=== PATIENT | male | born 1985 | race Caucasian/White ===

== ENCOUNTER 2023-05-12 16:08 | Emergency (ER) | payer BC, SELFPAY ==
--- NOTE | ~2023-05-12 | XR_ITS ---
EXAMINATION: XR CHEST CLINICAL INFORMATION: Chest pain COMPARISON: None available. TECHNIQUE: Frontal view of the chest was obtained. FINDINGS: No significant abnormality is noted involving the heart, lungs, mediastinum, bony thorax or soft tissues. XR/XR chest 1V IMPRESSION: Unremarkable examination.
--- NOTE | ~2023-05-12 | US_ITS ---
EXAMINATION: US VENOUS ULTRASOUND WITH DOPPLER LOWER EXTREMITY, RIGHT CLINICAL INFORMATION: Right leg calf pain COMPARISON: None available. TECHNIQUE: Ultrasound of the deep veins is performed from the hip to the calf with compression sonography and color and pulse Doppler assessment. Spectral analysis with color-flow imaging is performed. FINDINGS: There is normal venous compression and respiratory variation and augmented flow. The visualized common femoral vein, superficial femoral vein, profunda femoral vein, popliteal vein, and the trifurcation region shows no evidence of deep venous thrombosis. There is no significant popliteal fossa cyst. If the patient's symptoms persist, followup ultrasound in 5 days 7 days might be of value to exclude proximal propagation from a non-visualized calf vein. US/US venous duplex LE RT IMPRESSION: No DVT demonstrated in the right lower extremity.
--- NOTE | 2023-05-12 16:11 | ECG_ITS ---
Test Reason : chest pain Blood Pressure : / mmHG Vent. Rate : 088 BPM Atrial Rate : 088 BPM P-R Int : 184 ms QRS Dur : 086 ms QT Int : 346 ms P-R-T Axes : 018 009 005 degrees QTc Int : 418 ms Normal sinus rhythm Nonspecific T wave abnormality Abnormal ECG No previous ECGs available Referred By: Generic ED Physician Electronically Signed By:LUCIAN GUTHRIE
[2023-05-12 16:24] VITALS: BP 145/93; PULSE 87; RESP 18; TEMP 36.9; O2SAT 96; BMI 38.9
--- NOTE | 2023-05-12 16:29 | ED_ITS ---
HPI - Chest Pain General Chief Complaint: Chest Pain Stated Complaint: chest pain, palpitations History of Present Illness HPI narrative: Left without complete of treatment by ED provider. Related Data Allergies Allergy/AdvReac Type Severity Reaction Status Date / Time pencillin Allergy Mild Rash Uncoded 05/12/23 16:27 [facility] Social History Social History Advance Directives: No Advance Directives Information Provided: No Physical Exam 2 Vital Signs: Vital Signs: Last Vital Signs Temp 98.5 F 05/12/23 16:24 Pulse 87 05/12/23 16:24 Resp 18 05/12/23 16:24 BP 145/93 H 05/12/23 16:24 Pulse Ox 96 05/12/23 16:24 O2 Del Method Room Air 05/12/23 16:24 BMI result Body Mass Index 38.9 Course Course Course Narrative: RME: 38-year-old male presents to ED for chest pain and palpitation started couple hours ago. Patient states also mild right leg calf tightness for couple of days. Physical exam negative for any swelling of lower extremities or pitting edema. EKG chest x-ray lab ordered. Medical Decision Making Lab Data 05/12/23 17:20 05/12/23 17:20 Labs: Lab Results 05/12/23 Range/Units 17:20 WBC 8.7 (4.8-10.8) X10*3/uL RBC 5.31 (4.60-5.80) X10*6/uL Hgb 15.4 (14.0-18.0) g/dl Hct 45.5 (42.0-52.0) % MCV 85.7 (80.0-98.0) fL MCH 29.0 (27.0-33.0) pg MCHC 33.8 (31.0-36.0) g/dl RDW 12.6 (11.0-16.0) % Plt Count 282 (160-400) X10*3/uL MPV 10.6 (9.4-12.4) fL Immature Gran % (Auto) 0.1 (0.0-0.4) % Neut % (Auto) 64.0 (45-73) % Lymph % (Auto) 23.4 (20-40) % [place] % (Auto) 11.3 H (2-11) % Eos % (Auto) 0.9 (0-4) % Baso % (Auto) 0.3 (0-2) % Lymph # (Auto) 2.0 (1.2-4.9) X10*3/uL [place] # (Auto) 1.0 (0.1-1.2) X10*3/uL Eos # (Auto) 0.1 (0.0-0.4) X10*3/uL Baso # (Auto) 0.0 (0.0-0.2) X10*3/uL Abs Immat Gran (auto) 0.01 (0.00-0.03) X10*3/uL Absolute Neuts (auto) 5.6 (2.0-8.3) x10*3/uL Absolute Nucleated RBC 0.000 (0.0-0.012) X10*3/uL Nucleated RBC % (auto) 0.0 (0.0-0.2) /100WBC PT 12.3 (11.1-13.3) SEC INR 1.0 (0.9-1.1) APTT 34.8 (26.0-36.8) SEC Sodium 141 (135-145) mmol/L Potassium 3.9 (3.3-5.1) mmol/L Chloride 107 (96-108) mmol/L Carbon Dioxide 24 (22-29) mmol/L Anion Gap 14 (12-20) BUN 13 (9-16) mg/dL Creatinine 0.99 (0.5-1.4) mg/dL Estim Creat Clear Calc 131.7 Estimated GFR > 60 Random Glucose 93 (60-115) mg/dL Calcium 9.0 (8.4-10.2) mg/dL Total Bilirubin 0.4 (0.0-1.0) mg/dL Direct Bilirubin 0.2 (0.0-0.5) mg/dL AST 21 (5-37) U/L ALT 33 (0-40) U/L Alkaline Phosphatase 62 (39-117) U/L Troponin I High Sens < 2.7 (<3.5-35.0) ng/L B-Natriuretic Peptide < 10 (<100) pg/mL Total Protein 7.3 (6.5-8.0) g/dL Albumin 4.3 (3.5-5.0) g/dL Lipase 33 (8-78) U/L Discharge Plan Discharge Clinical Impression: Chest pain Patient Disposition: Left W/O Completing Treatment Discharge Date/Time: 05/12/23 23:00
[2023-05-12 17:25] LABS: MANUAL DIFF FLAG NO
[2023-05-12 17:26] LABS: Basophils Percent Auto 0.3 % (0-2); Eosinophils Absolute Auto 0.1 X10*3/uL (0.0-0.4); Eosinophils Percent Auto 0.9 % (0-4); Hematocrit 45.5 % (42.0-52.0); Hemoglobin 15.4 g/dl (14.0-18.0); Imm Gran Abs Auto 0.01 X10*3/uL (0.00-0.03); Imm Gran Pct Auto 0.1 % (0.0-0.4); Lymphocytes Percent Auto 23.4 % (20-40); Mean Corpuscular HGB Conc 33.8 g/dl (31.0-36.0); Mean Corpuscular Volume 85.7 fL (80.0-98.0); Mean Platelet Volume 10.6 fL (9.4-12.4); Monocytes Percent Auto 11.3 % (2-11); Neutrophils Absolute Auto 5.6 x10*3/uL (2.0-8.3); Platelet Count 282 X10*3/uL (160-400); Red Blood Count 5.31 X10*6/uL (4.60-5.80); Red Cell Distribution Width 12.6 % (11.0-16.0); White Blood Count 8.7 X10*3/uL (4.8-10.8)
[2023-05-12 17:32] LABS: Prothrombin Time 12.3 SEC (11.1-13.3)
[2023-05-12 17:34] LABS: Partial Thromboplastin Time 34.8 SEC (26.0-36.8)
[2023-05-12 17:41] LABS: Alanine Aminotransferase 33 U/L (0-40); Albumin Level 4.3 g/dL (3.5-5.0); Alkaline Phosphatase 62 U/L (39-117); Anion Gap 14 (12-20); Aspartate Amino Transferase 21 U/L (5-37); Bilirubin Direct 0.2 mg/dL (0.0-0.5); Bilirubin Total 0.4 mg/dL (0.0-1.0); Blood Urea Nitrogen 13 mg/dL (9-16); Carbon Dioxide 24 mmol/L (22-29); Chloride 107 mmol/L (96-108); Creatinine Clr Calc Pharmacy 131.7; Estimated Glomerular Filt Rate > 60; Glucose Random 93 mg/dL (60-115); Lipase 33 U/L (8-78); Potassium 3.9 mmol/L (3.3-5.1); Sodium 141 mmol/L (135-145); Total Protein 7.3 g/dL (6.5-8.0)
[2023-05-12 17:46] LABS: B Type Natriuretic Peptide < 10 pg/mL (<100)
[2023-05-12 17:47] LABS: Troponin-I High Sensitivity < 2.7 ng/L (<3.5-35.0)
== END 2023-05-12 23:00 | disposition left against medical advice (07) ==
PROVIDERS: Physician Assistant; Emergency Provider Emergency Medicine
DX: R07.89 Other chest pain (principal); R00.2 Palpitations; R94.31 Abnormal electrocardiogram [ECG] [EKG]; R60.0 Localized edema; R06.02 Shortness of breath; Z79.899 Other long term (current) drug therapy
CPT/HCPCS: 36415; 71045; 80048; 80076; 83690; 83880; 84484; 85025; 85610; 85730; 93005; 93971; 99283; 99284

== ENCOUNTER → 2023-05-12 16:11 | Outpatient (BNV) | payer BC, SELFPAY | PROVIDERS: Emergency Provider Emergency Medicine; Visit Provider Internal Medicine | DX: R07.9 Chest pain, unspecified (principal) | CPT/HCPCS: 93010 ==

== ENCOUNTER 2024-04-13 08:00 | Outpatient (AMB) | payer BC, SELFPAY ==
--- OUTSIDE RECORDS SUMMARY | 2024-04-13 08:02 | XMS_ITS | Continuity of Care Document ---
Author Name [facility] Organization [facility] Care Team Providers Care Treating Engineer Name Role Phone [facility] Unavailable Unavailable Problems Combined list of problems from Department of Defense and Veterans Affairs facilities. It does not include entries that were removed or entered in error. Problem Status Onset Date Problem Type Date of Resolution Comments Source visit for: services physical separation Inactive Condition ELS completed f or patellofemoral syndrome. Pt is not requesting an [employer] waiver. To f/u with civilian provider. F/u here prn pending separation. [facility] Other Physical Therapy Active Condition [facility] patellofemoral syndrome Inactive Condition [facility] Patient Counseling: Medical Management Inactive Condition Care plan established and d/w pt. Placed in [address] secondary to knee pain. To start PT tomorrow AM and f/u in 2 weeks. F/u sooner prn for any concerns. Pt is not motivated to remain in the [employer]. [facility] visit for: follow-up exam Active Condition DoD viral syndrome Inactive Condition waiver given D oD joint pain, localized in the knee Active Condition PT Dx - PFPS B, Pt. will benefit from ther ex to address pain and dysfunction. Pt very unmotivated to RTT. Now cleared for ELS. Plan: Discharge from PT, pending separation, advised to continue exercises as learned in clinic. [facility] Allergies, Adverse Reactions, Alerts Combined list of allergies from Department of Defense and Veterans Affairs facilities. It does not include entries that were removed or entered in error. Substance Category Reaction Severity Reaction type Status Date Reported Comments Source AMOXICILLIN (AMOXICILLIN TRIHYDRATE) Drug allergy (disorder) Rash active [address] [place] [address] PENICILLINS Drug allergy (disorder) Unknown active [address] [place] [address] Encounters Combined list of: 1) Encounters from Department of Veterans Affairs facilities going back up to thelast 18 months. 2) Encounters from the Department of [facility] facilities going back up to 280 months. Location Location Details Encounter Type Encounter Number Reason For Visit Attending Provider ADM Date DC Date Status Disposition Source [place] [address]([facility]) OUTPATIENT [id number] ERENDIRA BERRY Madalyn 06/04 Released with Work/Duty Limitations [facility] [place] [address]([facility] [place] [facility] [place] [address]([facility]) OUTPATIENT [id number] ERENDIRA BERRY Madalyn 06/08 Released with Work/Duty Limitations [facility] [place] [address] [place] [address]([facility]) OUTPATIENT [id number] PENNIE SLAUGHTER 06/09 Released with Work/Duty Limitations [place] [address] [place] [address]([facility]) OUTPATIENT [id number] ERENDIRA BERRY Madalyn 06/12 Released with Work/Duty Limitations [facility] [place] [address]([facility] [place], [facility] [place] [address]([facility]) OUTPATIENT [id number] ROSARIO RITTER 06/15 Released with Work/Duty Limitations [place] [address]([facility] [place] [place] [address](Phy sical Therapy, [facility]) OUTPATIENT [id number] AMARILIS SIDDIQI 06/16 Released w/o Limitations [facility] [place] [address](P hysical Therapy , [facility]) [facility] [place] [address](Phy sical Therapy, [facility]) OUTPATIENT [id number] BMT PT ZANA HOPPER 06/17 Released w/o Limitations [facility] [place] [address](P hysical Therapy , [facility]) [facility] [place] [address](Phy sical Therapy, [facility]) OUTPATIENT [id number] BMT PT RHEA FAUSTIN 06/18 Released w/o Limitations [facility] [place] [address](P hysical Therapy , [facility]) [facility] [place] [address](Tra [facility]) OUTPATIENT [id number] FU X RAY ROSARIO SANTIZO 06/19 Released with Work/Duty Limitations [facility] [place] [address](T [facility], [facility] d) [facility] [place] [address](Phy sical Therapy, [facility]) OUTPATIENT [id number] BMT PT ZANA HOPPER 06/19 Released w/o Limitations [facility] [place] [address](P hysical Therapy , [facility]) [facility] [place] [address](Phy sical Therapy, [facility]) OUTPATIENT [id number] BMT PT ZANA HOPPER 06/22 Released w/o Limitations [facility] [place] [address](P hysical Therapy , [facility]) [facility] [place] [address](Phy sical Therapy, [facility]) OUTPATIENT [id number] follow- up ENA MAXWELL 06/23 Released w/o Limitations [facility] [place] [address](P hysical Therapy , [facility]) Procedures Combined list of: 1) Procedures from Department of Veterans Affairs facilities going back up to thelast 18 months, not all VA non-surgical procedures are included; 2) All procedures from the Department of Defense facilities. Procedure Procedure Type Code Date Perfomer Comments Sour e PHYSICAL THERAPY RE-EVALUATION 06/24/2007 [facility] APPLICATION OF A MODALITY TO 1 OR MORE AREAS; HOT OR COLD PACKS 06/23/2007 [facility] THERAPEUTIC PROCEDURE, 1 OR MORE AREAS, EACH 15 MINUTES; THERAPEUTIC EXERCISES TO DEVELOP STRENGTH AND ENDURANCE, RANGE OF MOTION AND FLEXIBILITY 06/20/2007 [facility] APPLICATION OF A MODALITY TO 1 OR MORE AREAS; HOT OR COLD PACKS 06/19/2007 [facility] APPLICATION OF A MODALITY TO 1 OR MORE AREAS; HOT OR COLD PACKS 06/18/2007 [facility] PHYSICAL THERAPY EVALUATION 06/17/2007 [facility] PHYS/OTH QUALIFIED HEALTH OUTSOLE LEVELER QUALIFIED,EDUCATION ,TRAIN,LICENSURE/RE GULATION (WHEN APPLICABLE) EDUC SER RENDERED TO PATS IN A GRP SETTING (EG,,OBESIT Y,OR DIABETIC INSTRUCT) 06/16/2007 [facility] AZITHROMYCIN DIHYDRATE, ORAL, CAPSULES/POWDER, 1 GRAM 05/28/2007 [facility] Physical Therapy Service Re-Evaluation Physical Therapy Service Re-Evaluation [id number] 06/24/2007 ENA MAXWELL [facility] Physical Therapy: ___ Se ion Segments, 15 Minutes Each Physical Therapy: ___ Session Segments, 15 Minutes Each [id number] 06/23/2007 ZANA HOPPER [facility] Modalities Cryotherapy Cold Packs Modalities Cryotherapy Cold Packs [id number] 06/23/2007 ZANA HOPPER Physical Therapy: ___ Se ion Segments, 15 Minutes Each Physical Therapy: ___ Session Segments, 15 Minutes Each [id number] 06/20/2007 ZANA HOPPER Modalities Cryotherapy Cold Packs Modalities Cryotherapy Cold Packs [id number] 06/20/2007 ZANA HOPPER Modalities Cryotherapy Cold Packs Modalities Cryotherapy Cold Packs [id number] 06/18/2007 ZANA HOPPER Physical Therapy: ___ Se ion Segments, 15 Minutes Each Physical Therapy: ___ Session Segments, 15 Minutes Each [id number] 06/18/2007 ZANA HOPPER [facility] Physical Therapy Service Evaluation Physical Therapy Service Evaluation [id number] 06/17/2007 AMARIILS SIDDIQI [facility] Physician Supervised Group Educational Services 06/16/2007 ROSARIO SANTIZO [facility] Social History Combined list of available smoking, tobacco, and other social history from Department of Defense and Veterans Affairs facilities. Social History Type Response Date Comment Sourc e This section is an empty social history section. [facility]D
--- NOTE | 2024-04-13 09:27 | A.OFFVIS_ITS ---
VS Expanded 04/13/24 09:36 Height 5 ft 10 in Weight 279 lb BMI 40.0 Body Fat % 36.1 Body Fat Mass 100.8 Fat Free Mass 178.4 Visceral Fat Rating 19 Body Water % 44.5 Body Water Mass 124.2 Basal Metabolic Rate/Score 2,400 Intake Visit Reasons: TV [employer]UM[employer] SWL BMI 40.0 Allergies pencillin Allergy (Mild, Uncoded 04/13/24 09:28) Rash Medication List - Last Reconciled 04/13/24 by Ashu Sheridan MD No Known Home Meds HPI HPI [employer]UM[employer] SWL BMI 40.0: Details: Start time: 9.16am, End time: 10.01am ?I spent 40 minutes speaking with the patient on the phone plus an additional 5 minutes reviewing and updating records for a total of 45 minutes HPI Comments Details: Previous weight loss efforts: self diets Wakes up: 6.30am, Sleeps: 10.30pm Breakfast: 7-8am (apple, granola bar, muffin) Lunch: 12pm (sandwich, burger) Dinner: 6-7pm (chicken, potatoes, burgers) Snacks: 10am (chips, cookies), 2-3pm (chips, cookies), 8-9pm (ice cream, cookie s) Exercise: has home stationary bike Fluids: Coffee/Tea: none, soda: rarely 1/wk, juice:none, ETOH: none PFSH Medical History (Updated 04/13/24 @ 09:52 by Ashu Sheridan MD) Anxiety Patella-femoral syndrome Surgical History (Updated 04/10/24 @ 10:46 by Ivonne Guo CMA) Hx of elbow surgery Hx of wisdom tooth extraction Family History (Updated 04/10/24 @ 10:47 by Ivonne Guo CMA) Mother No problems noted. Father Heart problem Brother No problems noted. Brother Thyroid condition Sister No problems noted. Social History (Updated 04/10/24 @ 10:48 by Ivonne Guo CMA) Alcohol intake: current Alcohol intake frequency: holidays/special occasions only Patient Tobacco Use Status: Former Tobacco user Telehealth Telehealth Telehealth Platform: Telephone Location of provider rendering services: practice address Location of patient: address on file Patient Identification confirmed using: Name, : Yes Telehealth method: voice only Patient verbally consented to treatment: Yes Patient verbally consented to billing insurance company: Yes Patient informed of any privacy concerns related to visit: Yes Minutes spent on Phone/Video with Pt.: 45 Assessment & Plan Assessment & Plan (1) Obesity: Code(s): E66.9 - Obesity, unspecified Category: Medical Qualifiers: Obesity type: due to excess calories Obesity classification: adult class 3 (BMI >= 40) Serious obesity comorbidity presence: without serious comorbidity Body mass index: BMI 40.0-44.9 Qualified Code(s): E66.813 - Obesity, class 3; E66.01 - Morbid (severe) obesity due to excess calories; Z68.41 - Body mass index [BMI] 40.0-44.9, adult Plan: 1.? Plan for lap sleeve gastrectomy. If diaphragmatic or ventral hernias are present at time of surgery, these will be repaired laparoscopically as well. I emphasized the importance of close follow-up, adherence to instructions and good communication. The surgery does not replace the need to change your lifestlyle which is the cause of the obesity problem. The surgery provides the motivation to try again to change your lifestyle, it reduces the appetite and make the transition to a better lifestyle easier and doubles the amount of weight you would lose compared to doing the lifestyle change without the surgery. You will need to be on a liquid diet with protein shakes for 2 weeks before surgery to maximize weight loss and boost your nutritional status to recover better from surgery and also for the first two weeks after surgery to let the stomach heal before we introduce other foods. After the first 2 weeks we will introduce protein bars and soft foods like scrambled eggs, cottage cheese and yogurt and after the 6th week will introduce meat, fish and cooked veget ryan in small amounts. Over time you should be able to eat everything in small amounts. Side effects like nausea, vomiting, heartburn or abdominal pain are not common in the practice unless you are not following in the practice. This operation requires lifetime commitment to following in our practice and communication with me. You will much less weight and experience side effects if you don?t communicate or not following in the practice. Complications are rare and in our practice is about 1/10 of the national average. However, you can develop bleeding that may require transfusion (hasn?t happened for year in the practice), you may from complications (we did not have any deaths in the practice) and infections. Infections are usually a result of breakdown in communication or not understanding or following directions correctly. They are difficult to treat, they can happen during the first 6 weeks, they may require to be in the hospital for weeks or even months, not being able to eat by mouth and you may have drains and surgeries to try and correct the issue. Other risks and complications include possible conversion to an open procedure, leaks, small bowel obstruction, blood clots, cardiac, or pulmonary complications, as fci complications such as ulcers, insufficient weight loss and vitamin deficiencies. 2. You will receive a link of our software yandel to generate an individualized nutritional and exercise plan specific for you. Please send me a screenshot of the plans you will generate Meal to include lean meat (beef, fish, pork, turkey, chicken), or danish yogurt, or egg whites, or beans with a salad with olive oil and fruits (berries, pears, apples, kiwi). Avoid salt, breads, potatoes, rice, pasta, desserts. ?3. If you choose shakes, each shake would be drunk slowly, like coffee in a period of 2 hours. ?4. If you choose bars, cut each bar in 4 pieces and eat each piece in 30min ?to make each bar last 2 hours. ?5. I emphasized the importance of measuring accurately the food portion and measure it when serving the food in plate ?6. The meal portions include a specific number of forks of meat and salad. You always eat the meat portion but you can replace up to half of salad/vegetables portion with rice, potatoes or pasta, or a fruit ?if you like. The less you do it the better weight loss will be. ?7. One full-size fork is what it can be scooped on the fork without falling aside and not what can be bit with the fork. Use regular forks like those you find in a typical restaurant. ?8.? Please buy the body composition scale we discussed and send me weight measurements as soon as possible and then once a week. Always include your diet and exercise plan. 9. The best choice would be to purchase a stationary bike, elliptical or treadmill at home that can track calories. Let me know if you do so I can give you an exercise plan. ?10. Goal is to lose at least 1.5-2lbs per week ?11. Goal to lose 10% of your weight before surgery, which is about 28lbs. Ultimate weight goal: 251lbs before surgery 12. Please follow the diet plan exactly without any change. If you don't like something about the plan or you feel hungry you need to communicate with me so I can help you revise the plan. You should not change the plan yourself. 13. To be scheduled for EGD due to the history of sleeve gastrectomy and anemia. The possibility of biopsies was discussed. Patient needs to avoid use of NSAIDs and aspirin for 1 week prior to EGD. You must be on liquids only the day before your endoscopy. Risks of perforation and bleeding was discussed with the patient. This will be an outpatient procedure with IV sedation. Orders: Orders Insulin Today E66.9 - Obesity, unspecified, Z68.39 - Body mass index [BMI] 39.0-39.9, adult Hemoglobin A1c Today E66.9 - Obesity, unspecified, Z68.39 - Body mass index [BMI] 39.0-39.9, adult Complete Blood Count Auto Diff Today E66.9 - Obesity, unspecified, Z68.39 - Body mass index [BMI] 39.0-39.9, adult Vitamin B12 and Folate Today E66.9 - Obesity, unspecified, Z68.39 - Body mass index [BMI] 39.0-39.9, adult Zinc Today E66.9 - Obesity, unspecified, Z68.39 - Body mass index [BMI] 39.0- 39.9, adult C Reactive Protein Today E66.9 - Obesity, unspecified, Z68.39 - Body mass index [BMI] 39.0-39.9, adult Vitamin B1 Today E66.9 - Obesity, unspecified, Z68.39 - Body mass index [BMI] 39.0-39.9, adult Ferritin Today E66.9 - Obesity, unspecified, Z68.39 - Body mass index [BMI] 39.0-39.9, adult Vitamin D 25-OH Total Today E66.9 - Obesity, unspecified, Z68.39 - Body mass index [BMI] 39.0-39.9, adult H Pylori Breath Test Today E66.9 - Obesity, unspecified, Z68.39 - Body mass index [BMI] 39.0-39.9, adult Lipid Panel Today E66.9 - Obesity, unspecified, Z68.39 - Body mass index [BMI] 39.0-39.9, adult IRON PROFILE Today E66.9 - Obesity, unspecified, Z68.39 - Body mass index [BMI] 39.0-39.9, adult Comprehensive Met. Panel Today E66.9 - Obesity, unspecified, Z68.39 - Body mass index [BMI] 39.0-39.9, adult Vitamin A Today E66.9 - Obesity, unspecified, Z68.39 - Body mass index [BMI] 39.0-39.9, adult TSH reflex Free T4 Today E66.9 - Obesity, unspecified, Z68.39 - Body mass index [BMI] 39.0-39.9, adult US abdomen comp w elastography Today E66.9 - Obesity, unspecified, Z68.39 - Body mass index [BMI] 39.0-39.9, adult XR chest 2V Today E66.9 - Obesity, unspecified, Z68.39 - Body mass index [BMI] 39.0-39.9, adult ECG 12 lead EKG Today E66.9 - Obesity, unspecified, Z68.39 - Body mass index [BMI] 39.0-39.9, adult FL upper GI w air Today E66.9 - Obesity, unspecified, Z68.39 - Body mass index [BMI] 39.0-39.9, adult Referrals Behavioral Health Referral E66.9 - Obesity, unspecified, Z68.39 - Body mass index [BMI] 39.0-39.9, adult Nutrition/Dietitian Referral E66.9 - Obesity, unspecified, Z68.39 - Body mass index [BMI] 39.0-39.9, adult
[2024-04-13 09:36] VITALS: BMI 40.0
== END 2024-04-13 10:02 | disposition home or self-care (01) ==
LOC: HO.HBS 08:00
PROVIDERS: PCP Physician Assistant; Visit Provider Surgery
DX: E66.813 Obesity, class 3 (principal); Z68.41 Body mass index [BMI] 40.0-44.9, adult
CPT/HCPCS: 98016

== ENCOUNTER → 2024-04-13 08:00 | Outpatient (BNVA) | payer BC, SELFPAY | PROVIDERS: PCP Physician Assistant; Visit Provider Surgery ==